=== PATIENT | female | born 1965 | race Caucasian/White ===

== ENCOUNTER → 2021-05-28 | Outpatient (REF) | payer BC, OTHER ==
[~2021-05-28] MED LIST: ACET-716 PO; BARIATRIC VITAMINS PO; BIOT1CAP2 PO; CYCL-707 PO; GABA-1171 PO; HYDR-3719 PO; K-TA10TA2 PO; SYNT150T PO; TRAZ-252 PO; WELLTAB38 PO
[2021-05-28 18:17] LABS: APPEARANCE, URINE CLEAR (CLEAR); BACTERIA, URINE AUTO NEGATIVE (NEGATIVE); BILIRUBIN, URINE AUTO NEGATIVE (NEGATIVE); BLOOD, URINE BLOOD 2+ (NEGATIVE); COLOR, URINE STRAW (YELLOW); GLUCOSE, URINE (UA) AUTO NEGATIVE (NEGATIVE); KETONE, URINE AUTO NEGATIVE (NEGATIVE); LEUKOCYTE ESTERASE, URINE AUTO NEGATIVE (NEGATIVE); NITRITE, URINE AUTO NEGATIVE (NEGATIVE); PROTEIN, URINE AUTO NEGATIVE (NEGATIVE); RBC, URINE AUTO 3 /HPF (0-3); SPECIFIC GRAVITY URINE AUTO 1.004 (1.002-1.035); SQUAMOUS EPITHELIAL CELL UR AU 0 /HPF (0-6); UROBILINOGEN, URINE AUTO 0.2 mg/dL (0.0-2.0); WBC, URINE AUTO 0 /HPF (0-3)
== END ==
LOC: M SMT 16:43
PROVIDERS: ATTEND Nurse Practitioner Women's Health
DX: R31.29 Other microscopic hematuria (principal)

== ENCOUNTER → 2021-06-09 | Outpatient (CLI) | payer BC ==
--- NOTE | 2021-06-11 13:00 | REP ---
INDICATION: PAIN IN LEFT ANKLE AND JOINTS OF LEFT FOOT COMPARISON: None. TECHNIQUE: AP and lateral views of the left knee FINDINGS: Moderate tricompartmental osteoarthritic degenerative changes include cortical irregularity and spurring at the medial and lateral compartments as well as involving the patellofemoral joint space. There is no evidence for acute fracture or dislocation. No obvious effusion. IMPRESSION: Moderate tricompartmental osteoarthritic degenerative changes. <Electronically signed by iWcho Duncan > 06/11/21 [id number]
--- NOTE | 2021-06-11 13:01 | REP ---
INDICATION: PAIN IN LEFT ANKLE AND JOINTS OF LEFT FOOT COMPARISON: None. TECHNIQUE: AP, lateral, oblique views. FINDINGS: Evidence for prior orthopedic fixation of the calcaneus. Arthritic changes with spurring at the superior anterior 3rd of the talus is identified along with generalized osteopenia. Cortical irregularities and subtle broad-based spurring at the medial malleolus is also identified as well as calcaneal heel spur. IMPRESSION: Osteopenia and degenerative changes. Evidence for prior calcaneal fixation. <Electronically signed by Wicho Duncan > 06/11/21 1257
== END ==
LOC: M RAD 14:12
PROVIDERS: ATTEND Podiatrist
DX: M25.572 Pain in left ankle and joints of left foot (principal); M85.872 Other specified disorders of bone density and structure, left ankle and foot; M77.32 Calcaneal spur, left foot; M19.072 Primary osteoarthritis, left ankle and foot; M17.12 Unilateral primary osteoarthritis, left knee

== ENCOUNTER 2023-05-27 08:31 | Day surgery (SDC) | payer BC ==
[~2023-05-27] VITALS: Ht 172.7 cm; Wt 98.9 kg
[~2023-05-27 08:31] MED LIST changes: +ALBU8.5H INH; +BSS IRRIG/VANCO(10MG)/TOBRA(5MG)/EPINEPH(1:1000-0.5CC)500ML BAG-ORONLY IR ONE; +CEFUROXIME 1MG/0.1ML INTRACAMERAL INJ As Ordered ONE; +CYCLOPENTOLATE 1% OPHTH SOLN 2ML BTL OD SCH; +FLUT1BLS5 INH; -K-TA10TA2 PO; +LEVO125T4 PO; +LIDOCAINE 1% SDV 5ML VIAL As Ordered ONE; +LIDOCAINE 3.5 % 1ML OPHTH TOPICAL GEL OU ONE; +MELA10TA2 PO; +OFLOXACIN 0.3 % (OCUFLOX) OPTH SOL 5ML OD ONE; +PHENYLEPHRINE 10% OPHTH SOL 5ML OD PRN; +PHENYLEPHRINE 2.5% OPHTH SOL 2ML OD SCH; +POTA-165 PO; +TROPICAMIDE 1% OPHTH SOLN 15ML OD SCH
[2023-05-27] MEDS ORDERED: fentaNYL 100 MCG/2 ML INJECTION As Ordered ONE (10:50)
[2023-05-27] MEDS ORDERED: MIDAZOLAM INJ 2MG/2ML VIAL As Ordered ONE (10:50)
[2023-05-27 12:28] VITALS: BP 147/85; TEMP 97.3; O2SAT 95
[2023-06-01] MEDS ORDERED: ONETAB33 PO (13:39)
== END 2023-05-27 12:28 | disposition home or self-care (01) ==
LOC: M SDC 08:31
PROVIDERS: ATTEND Ophthalmology
DX: H25.11 Age-related nuclear cataract, right eye (principal); G47.30 Sleep apnea, unspecified; E03.9 Hypothyroidism, unspecified; K76.9 Liver disease, unspecified; Z79.899 Other long term (current) drug therapy; Z79.890 Hormone replacement therapy; Z88.8 Allergy status to other drugs, medicaments and biological substances; Z15.09 Genetic susceptibility to other malignant neoplasm
CPT/HCPCS: 66984; J0697; J2250; J3010; V2632

== ENCOUNTER 2023-06-09 11:50 | Day surgery (SDC) | payer BC ==
[~2023-06-09] VITALS: Ht 167.6 cm; Wt 99.2 kg
[~2023-06-09 11:50] MED LIST changes: -CYCLOPENTOLATE 1% OPHTH SOLN 2ML BTL OD SCH; +CYCLOPENTOLATE 1% OPHTH SOLN 2ML BTL OS SCH; -OFLOXACIN 0.3 % (OCUFLOX) OPTH SOL 5ML OD ONE; +OFLOXACIN 0.3 % (OCUFLOX) OPTH SOL 5ML OS ONE; +ONETAB33 PO; -PHENYLEPHRINE 10% OPHTH SOL 5ML OD PRN; +PHENYLEPHRINE 10% OPHTH SOL 5ML OS PRN; -PHENYLEPHRINE 2.5% OPHTH SOL 2ML OD SCH; +PHENYLEPHRINE 2.5% OPHTH SOL 2ML OS SCH; -TROPICAMIDE 1% OPHTH SOLN 15ML OD SCH; +TROPICAMIDE 1% OPHTH SOLN 15ML OS SCH
[2023-06-09] MEDS ORDERED: fentaNYL 100 MCG/2 ML INJECTION As Ordered ONE (13:54)
[2023-06-09] MEDS ORDERED: MIDAZOLAM INJ 2MG/2ML VIAL As Ordered ONE (13:55)
[2023-06-09] MEDS ORDERED: LIDOCAINE 3.5 % 1ML OPHTH TOPICAL GEL As Ordered ONE (14:07)
[2023-06-09] MEDS ORDERED: dexmedeTOMIDine (4MCG/ML)200MCG/50ML BTL (PRECEDEX) As Ordered ONE ×2 (14:11→14:14)
[2023-06-09 15:18] VITALS: BP 166/98; TEMP 98; O2SAT 98
== END 2023-06-09 15:18 | disposition home or self-care (01) ==
LOC: M SDC 11:50
PROVIDERS: ATTEND Ophthalmology
DX: H26.9 Unspecified cataract (principal); E03.9 Hypothyroidism, unspecified; G47.30 Sleep apnea, unspecified; Z79.890 Hormone replacement therapy; Z79.899 Other long term (current) drug therapy
CPT/HCPCS: 66984; J0697; J2250; J3010; V2632